=== PATIENT | male | born 1990 | race African-American/Black ===

== ENCOUNTER 2017-08-18 11:12 | Emergency (ER) | payer OTHER ==
[~2017-08-18] VITALS: Ht 170.2 cm; Wt 56.7 kg
[~2017-08-18 11:12] MED LIST: AVELOX 400 MG400 MG PO; COMBIVENT INH; FLULAVAL; IBUPROFEN 800800 MG PO; MEDROL DOSPAK21 TA1; NOHOMEMEDICATIONS; ONDANSETRON HCL4 M2 PO; PREDNISONE50 MG PO; PROAIR HFA8.5 GM IH; ZPAK PO
[2017-08-18 12:00] LABS: URINE BLOOD NEGATIVE (Negative); URINE CLARITY CLEAR; URINE COLOR YELLOW; URINE GLUCOSE-RANDOM* NEGATIVE (Negative); URINE KETONES 3+ (Negative); URINE LEUKOCYTES-REFLEX NEGATIVE (Negative); URINE NITRITE-REFLEX NEGATIVE (Negative); URINE PROTEIN (DIPSTICK) TRACE (Negative); URINE SPECIFIC GRAVITY 1.015 (1.005-1.035)
[2017-08-18 12:09] LABS: CALCIUM 10.4 mg/dL (8.5-10.1); POTASSIUM 3.4 mmol/L (3.5-5.1)
[2017-08-18 12:13] LABS: ICTOTEST (BILI CONFIRMATORY) Negative (Negative); URINE BILIRUBIN NEGATIVE (Negative)
[2017-08-18 12:14] LABS: URINE REDUCING SUBSTANCE NEGATIVE
[2017-08-18 12:15] LABS: ABSOLUTE NEUTROPHILS 5.8 thou/uL (1.4-8.2); ALBUMIN 4.6 g/dL (3.4-5.0); BASOPHILS 0.6 % (0.0-2.0); EOSINOPHILS 0.6 % (0.0-3.0); HEMATOCRIT 48.6 % (42.0-52.0); LYMPHOCYTES 18.2 % (24.0-44.0); MCH 33.6 pg (26.0-34.0); MCHC 34.9 g/dL (28.0-37.0); MCV 96.2 fL (80.0-100.0); MONOCYTES 10.6 % (1.0-8.0); PLATELET COUNT 319 thou/uL (150-400); RBC 5.05 mil/uL (4.50-6.00); RDW 12.4 % (10.5-14.5); WBC 8.3 thou/uL (4.0-11.0)
[2017-08-18] MEDS ORDERED: PHENERGAN 25 MG25 M1 PO (14:11)
[2017-08-18 16:17] VITALS: BP 116/74
== END 2017-08-18 16:17 | disposition home or self-care (01) ==
LOC: ER 11:12
PROVIDERS: Emergency Medicine
DX: R11.2 Nausea with vomiting, unspecified (principal); R10.11 Right upper quadrant pain; R10.12 Left upper quadrant pain; J45.909 Unspecified asthma, uncomplicated

== ENCOUNTER 2017-08-23 14:53 | Emergency (ER) | payer OTHER ==
[~2017-08-23] VITALS: Ht 170.2 cm; Wt 56.7 kg
[~2017-08-23 14:53] MED LIST changes: +PHENERGAN 25 MG25 M1 PO
[2017-08-23 16:05] LABS: ABSOLUTE NEUTROPHILS 11.1 thou/uL (1.4-8.2); BASOPHILS 1.1 % (0.0-2.0); EOSINOPHILS 0.3 % (0.0-3.0); HEMATOCRIT 49.8 % (42.0-52.0); HEMOGLOBIN 17.2 gm/dL (14.0-18.0); LYMPHOCYTES 8.3 % (24.0-44.0); MCH 33.5 pg (26.0-34.0); MCHC 34.5 g/dL (28.0-37.0); MCV 97.1 fL (80.0-100.0); MONOCYTES 2.1 % (1.0-8.0); PLATELET COUNT 341 thou/uL (150-400); POLYS 88.2 % (36.0-66.0); RBC 5.12 mil/uL (4.50-6.00); RDW 13.1 % (10.5-14.5); WBC 12.6 thou/uL (4.0-11.0)
[2017-08-23 16:09] LABS: AMP/METHAMP Negative (Negative); BARBITURATES Negative (Negative); BENZODIAZEPINES Negative (Negative); COCAINE Negative (Negative); METHADONE Negative (Negative); OPIATES Negative (Negative); PCP Negative (Negative)
[2017-08-23 17:13] LABS: ALBUMIN 4.2 g/dL (3.4-5.0); CALCIUM 9.8 mg/dL (8.5-10.1); DIRECT BILIRUBIN 0.2 mg/dL (<0.1-0.3); POTASSIUM 3.8 mmol/L (3.5-5.1); TOTAL PROTEIN 7.9 g/dL (6.4-8.2)
[2017-08-23] MEDS ORDERED: ACCUNEB SO1.25 MG/1 INH (19:11)
[2017-08-23] MEDS ORDERED: PHENERGAN 25 MG25 M1 PO (19:15)
[2017-08-23 19:29] VITALS: BP 121/64
== END 2017-08-23 19:30 | disposition home or self-care (01) ==
LOC: ER 14:53
PROVIDERS: Emergency Medicine
DX: R10.11 Right upper quadrant pain (principal); R11.2 Nausea with vomiting, unspecified; R20.2 Paresthesia of skin; J45.909 Unspecified asthma, uncomplicated

== ENCOUNTER 2019-02-05 15:40 | Emergency (ER) | payer OTHER ==
[~2019-02-05] VITALS: Ht 170.2 cm; Wt 68.0 kg
[~2019-02-05 15:40] MED LIST changes: +ACCUNEB SO1.25 MG/1 INH
[2019-02-05] MEDS ORDERED: PROTONIX40 MG PO (17:16)
[2019-02-05] MEDS ORDERED: ZOFRAN ODT4 MG PO (17:16)
[2019-02-05] MEDS ORDERED: TYLENOL325 MG PO (17:16)
[2019-02-05 17:41] VITALS: BP 108/67
== END 2019-02-05 17:41 | disposition home or self-care (01) ==
LOC: ER 15:40
DX: H92.01 Otalgia, right ear (principal); R10.12 Left upper quadrant pain; J45.909 Unspecified asthma, uncomplicated

== ENCOUNTER 2019-06-07 15:07 | Emergency (ER) | payer OTHER ==
[~2019-06-07] VITALS: Ht 170.2 cm; Wt 86.2 kg
[~2019-06-07 15:07] MED LIST changes: +PROTONIX40 MG PO; +TYLENOL325 MG PO; +ZOFRAN ODT4 MG PO
[2019-06-07 16:12] LABS: ABSOLUTE NEUTROPHILS 8.4 thou/uL (1.4-8.2); BASOPHILS 0.3 % (0.0-2.0); EOSINOPHILS 2.5 % (0.0-3.0); LYMPHOCYTES 9.2 % (24.0-44.0); MCH 31.6 pg (26.0-34.0); MCHC 32.6 g/dL (28.0-37.0); MCV 96.8 fL (80.0-100.0); MONOCYTES 5.1 % (1.0-8.0); PLATELET COUNT 216 thou/uL (150-400); POLYS 82.9 % (36.0-66.0); RBC 4.44 mil/uL (4.50-6.00); RDW 12.5 % (10.5-14.5); WBC 10.2 thou/uL (4.0-11.0)
[2019-06-07] MEDS ORDERED: PREDNISONE50 MG PO (17:28)
[2019-06-07 17:32] LABS: CALCIUM 9.3 mg/dL (8.5-10.1); CREATININE 0.9 mg/dL (0.7-1.3); POTASSIUM 4.3 mmol/L (3.5-5.1)
[2019-06-07] MEDS ORDERED: PROAIR HFA8.5 GM INH (17:36)
[2019-06-07 17:38] LABS: ALBUMIN 4.1 g/dL (3.4-5.0); TOTAL BILIRUBIN 0.6 mg/dL (<0.1-1.0)
[2019-06-07 18:43] VITALS: BP 108/62
== END 2019-06-07 18:45 | disposition home or self-care (01) ==
LOC: ER 15:07
PROVIDERS: Emergency Medicine
DX: J45.909 Unspecified asthma, uncomplicated (principal)

== ENCOUNTER 2019-06-12 20:40 | Emergency (ER) | payer OTHER ==
[~2019-06-12] VITALS: Ht 170.2 cm; Wt 86.2 kg
[~2019-06-12 20:40] MED LIST changes: +PROAIR HFA8.5 GM INH
[2019-06-12] MEDS ORDERED: PREDNISONE 20 M20 MG PO (21:37)
[2019-06-12] MEDS ORDERED: VENTOLIN HFA 1818 GM INH (21:39)
[2019-06-12 22:08] VITALS: BP 117/72
--- NOTE | 2019-06-13 08:24 | EKG ---
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: [facility] : 1990 Requested By: Chelsey Arroyo Order Number: [id number] MD: De Sarabia Measurements Intervals [place] Rate: 76 P: -26 ID: [id number] QRS: -55 QRSD: 89 T: 28 QT: 351 QTc: 395 Interpretive Statements Sinus rhythm Left anterior fascicular block ST elev, probable normal early repol pattern Baseline wander in lead(s) V4 Compared to ECG 11/15/2011 19:41:10 No significant change was found Electronically Signed On 06-13-2019 8:23:22 CDT by De Sarabia [email or web address] <ELECTRONICALLY SIGNED> By: De Sarabia MD, FAC 06/13/19822 43 43 De Sarabia MD, FAC /EPI
== END 2019-06-12 22:09 | disposition home or self-care (01) ==
LOC: ER 20:40
DX: R07.89 Other chest pain (principal); J45.901 Unspecified asthma with (acute) exacerbation; J06.9 Acute upper respiratory infection, unspecified

== ENCOUNTER 2020-01-07 05:15 | Emergency (ER) | payer OTHER ==
[~2020-01-07] VITALS: Ht 170.2 cm; Wt 99.8 kg
[~2020-01-07 05:15] MED LIST changes: +PREDNISONE 20 M20 MG PO; +VENTOLIN HFA 1818 GM INH
[2020-01-07] MEDS ORDERED: PROAIR HFA8.5 GM INH (07:42)
[2020-01-07] MEDS ORDERED: PREDNISONE50 MG PO (07:42)
[2020-01-07 08:21] VITALS: BP 128/62
== END 2020-01-07 08:22 | disposition home or self-care (01) ==
LOC: ER 05:15
DX: J45.901 Unspecified asthma with (acute) exacerbation (principal); Z20.828 Contact with and (suspected) exposure to other viral communicable diseases; Z79.899 Other long term (current) drug therapy